=== PATIENT | female | born 1960 | race Caucasian/White ===

== ENCOUNTER 2019-07-16 14:21 | Outpatient (RCR) | payer BC, SELFPAY ==
--- NOTE | 2019-07-16 15:15 | PTOPEVAL ---
Thank you for referring this patient to [facility]. Please review, sign, date and return this plan of care KP. I agree with and certify that the following plan of care is medically necessary. Referring Physician Date Admitting Provider: Attending Provider: PHYSICIAN NOT ON STAFF Referring Provider: *PT Outpatient Evaluation Start: 07/16/19 14:26 Freq: Status: Active Protocol: Document 07/16/19 14:26 [facility] (Rec: 07/16/19 15:14 [facility] [id number]) Therapy Assessment Status Assessment Status Assessment Status Evaluation Outpatient Past Medical History Cardiovascular History Hx Hypertension Yes Musculoskeletal History Hx Fractures Yes: heel Reproductive History Hx Hysterectomy Yes Evaluation Information Problem Diagnosis cervical radiculopathy Onset 07/12/19 Additional Evaluation Detail NDI = 34% currently on steroid dose pack which helps to relieve a lot of her pain Subjective Information patient reports she has pain Query Text:As Reported By Patient/ in the neck and down the R arm Family into the elbow. she reports she has been having pain for about 1 year. she reports she had pull in the upper R arm that limited her mobility and began to give her symptoms into the neck and r elbow. she reports she has not had an MRI as of this date, she reports she has had x-rays of the spine. Diagnostic Tests X-Rays For This Problem Yes MRI For This Problem No Prior Level of Function Comments Additional Prior Level of Function patient has completed some Comments chiroprcatic work for this issue. she reports she has difficulty with working daily (works in a [employer]). 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 she reports again her symptoms are reduced due to being on steroids. Pain Assessment Timing of Pain Assessment Timing of Pain Assessment Assessment Pain Scale Pain Scale Used Numeric (1 - 10) Self Report Pain Assessment Right Neck Reported Pain Level 3 Pain Description Pulling,Sharp,Tightness Pain
--- NOTE | 2019-08-19 16:08 | PCPTNOTE ---
patient cancelled appt. lj
== END 2019-09-02 08:42 | disposition home or self-care (01) ==
LOC: CHSPT 14:21
DX: M54.12 Radiculopathy, cervical region (principal)
CPT/HCPCS: 97012; 97014; 97110; 97140; 97161; G0283

== ENCOUNTER 2022-01-31 11:18 | Outpatient (CLI) | payer BC, SELFPAY ==
[2022-01-31 11:57] LABS: SARS-CoV-2 Ag Negative (Negative)
== END 2022-01-31 11:19 | disposition home or self-care (01) ==
LOC: CHSLAB 11:25
PROVIDERS: PCP Family Medicine
DX: Z01.818 Encounter for other preprocedural examination (principal); Z20.822 Contact with and (suspected) exposure to COVID-19
CPT/HCPCS: 87426; C9803

== ENCOUNTER 2024-07-05 12:58 | Outpatient (RCR) | payer BC, SELFPAY ==
--- NOTE | 2024-07-05 13:44 | OPREHPOC ---
Outpatient Therapy Plan of Care This is a Multidisciplinary Plan of Care that may contain components documented by all disciplines (PT, OT, and ST.) PT Problem 1 PT Problem #1 Knowledge Deficit PT Goal 1 Goal / Goal Update 1. independent and compliant with HEP Target Visit 6 PT Problem 2 PT Problem #2 Pain PT Goal 1 Goal / Goal Update 1. decrease pain at worst to 4/10 or less in the L knee Target Visit 12 PT Problem 3 PT Problem #3 Impaired Range of Motion PT Goal 1 Goal / Goal Update 1. 0-120 degrees active L knee mobility Target Visit 12 PT Problem 4 PT Problem #4 Impaired Strength PT Goal 1 Goal / Goal Update 1. 4/5 L hip flex strength without extension lag during SLR 2. 5/5 L knee strength Target Visit 12 PT Problem 5 PT Problem #5 Impaired Functional Mobil PT Goal 1 Goal / Goal Update 1. patient to transition to cane for ambulation Target Visit 6 PT Goal 2 Goal / Goal Update 1. patient to DC need of any AD for ambulation 2. normal gait mechanics with equal stance time and step/stride length 3. reciprocal mechanics up and down steps 4. LEFS to display 30% or less functional deficits Target Visit 12
--- NOTE | 2024-07-05 13:44 | PTOPEVAL1 ---
Assessment and note entered by JT File, PT Evaluation Information Assessment Status Evaluation Diagnosis s/p L TKA ICD-10 Condition Codes (PT) Pain in left knee M25.562,Z47.89,Z47.1 Onset 07/01/24 Subjective Information patient reports she has the L knee replaced on 09/23. she reports prior to surgery her knee was really bad. she reports she was completely bone on bone. she reports prior to surgery, she was walking without an AD, but was walking slow and was painful. she reports since surgery it has been absolutely miserable. she reports she is unable to lift the L LE up on her own to get in bed. she reports she has been doing some light exercises post op. Reported Pain Level Pain Score 10: Self Report Assessment PT Clinical Summary mrs. nieves is a 64 yo woman who presents to skilled PT services for rehab following L TKA. she presents today with decreased L knee rom, decreased L LE strength, pain, swelling, and abnormal gait mechanics. she would benefit from continued skilled PT to address her objective/ functional deficits to allow patient to return to prior level walking and functional activity performance/quality of life. Plan of Care Interventions Electrical Stimulation,Gait Training,Hot Pack/Cold Pack,Intermittent Compression,Manual Therapy, Neuro Re-education,Patient/Caregiver Educati, Therapeutic Activities,Therapeutic Exercise PT Services Indicated Yes Treatment Frequency and 3x weekly for 12 visits Duration These treatments will address the objective and functional deficits as defined above. The patient will be advanced safely and appropriately in order for the patient to progress towards his/her prior level of function. Additional exercises will be introduced and as well as a comprehensive home exercise program upon discharge, if needed, ?to ensure carryover of functional gains achieved in the clinic. This treatment plan has been reviewed and agreement upon by the patient.
--- NOTE | 2024-07-17 17:06 | PCPTNOTE ---
I reviewed the License Pending Therapist's documentation and agree with the findings.
--- NOTE | 2024-07-19 14:13 | PCPTNOTE ---
I reviewed the License Pending Therapist's documentation and agree with the findings.
--- NOTE | 2024-07-26 16:53 | PCPTNOTE ---
I reviewed the License Pending Therapist's documentation and agree with the findings.
--- NOTE | 2024-07-29 17:37 | PCPTNOTE ---
Documentation has been reviewed by the supervising PT. All documentation is accurate and appropriate.
--- NOTE | 2024-07-30 13:59 | OPREHPOC ---
Outpatient Therapy Plan of Care This is a Multidisciplinary Plan of Care that may contain components documented by all disciplines (PT, OT, and ST.) PT Problem 1 PT Problem #1 Knowledge Deficit PT Goal 1 Goal / Goal Update 1. independent and compliant with HEP Target Visit 6 Progress Met PT Problem 2 PT Problem #2 Pain PT Goal 1 Goal / Goal Update 1. decrease pain at worst to 4/10 or less in the L knee Target Visit 12 Progress Partially Met PT Problem 3 PT Problem #3 Impaired Range of Motion PT Goal 1 Goal / Goal Update 1. 0-120 degrees active L knee mobility Target Visit 12 Progress Met PT Problem 4 PT Problem #4 Impaired Strength PT Goal 1 Goal / Goal Update 1. 4/5 L hip flex strength without extension lag during SLR 2. 5/5 L knee strength Target Visit 12 PT Problem 5 PT Problem #5 Impaired Functional Mobility PT Goal 1 Goal / Goal Update 1. patient to transition to cane for ambulation Target Visit 6 Progress Met PT Goal 2 Goal / Goal Update 1. patient to DC need of any AD for ambulation. partially met 2. normal gait mechanics with equal stance time and step/stride length. 3. reciprocal mechanics up and down steps 4. LEFS to display 30% or less functional deficits Target Visit 12
--- NOTE | 2024-07-30 13:59 | PTOPPROGNS ---
Assessment and note entered by JT File, PT Evaluation Information Assessment Status Progress Diagnosis s/p L TKA ICD-10 Condition Codes (PT) Pain in left knee M25.562,Encounter for other orthopedic aftercare Z47.89,Aftercare following joint replacement surgery Z47.1 Onset 07/01/24 Subjective Information patient reports she is doing well. she reports her pain in the last week has reached a 4 at night. she reports she is using the cane to ambulate off and on. Assessment PT Clinical Summary mrs. nieves presents to skilled PT services for her 10th skilled PT visit. she displays improved rom, strength, and gait mechanics since her initial evaluation. she is progressing well towards achievement of all goals for skilled PT. she would benefit from continued skilled PT to achieve her remaining unmet goals and advance her HEP. Plan of Care Interventions Electrical Stimulation,Gait Training,Hot Pack/Cold Pack,Intermittent Compression Pump,Manual Therapy ,Neuro Re-education,Patient/Caregiver Education, Therapeutic Activities,Therapeutic Exercise PT Services Indicated Yes Treatment Frequency and continue per initial POC Duration These treatments will address the objective and functional deficits as defined above. The patient will be advanced safely and appropriately in order for the patient to progress towards his/her prior level of function. Additional exercises will be introduced and as well as a comprehensive home exercise program upon discharge, if needed, ?to ensure carryover of functional gains achieved in the clinic. This treatment plan has been reviewed and agreement upon by the patient.
--- NOTE | 2024-08-07 13:46 | OPREHPOC ---
Outpatient Therapy Plan of Care This is a Multidisciplinary Plan of Care that may contain components documented by all disciplines (PT, OT, and ST.) PT Problem 1 PT Problem #1 Knowledge Deficit PT Goal 1 Goal / Goal Update 1. independent and compliant with HEP Target Visit 6 Progress Met PT Problem 2 PT Problem #2 Pain PT Goal 1 Goal / Goal Update 1. decrease pain at worst to 4/10 or less in the L knee Target Visit 12 Progress Met PT Problem 3 PT Problem #3 Impaired Range of Motion PT Goal 1 Goal / Goal Update 1. 0-120 degrees active L knee mobility Target Visit 12 Progress Met PT Problem 4 PT Problem #4 Impaired Strength PT Goal 1 Goal / Goal Update 1. 4/5 L hip flex strength without extension lag during SLR. met 2. 5/5 L knee strength. met Target Visit 12 Progress Met PT Problem 5 PT Problem #5 Impaired Functional Mobility PT Goal 1 Goal / Goal Update 1. patient to transition to cane for ambulation Target Visit 6 Progress Met PT Goal 2 Goal / Goal Update 1. patient to DC need of any AD for ambulation. met 2. normal gait mechanics with equal stance time and step/stride length. met 3. reciprocal mechanics up and down steps. met 4. LEFS to display 30% or less functional deficits Target Visit 12
--- NOTE | 2024-08-07 13:48 | PTOPDC ---
Assessment and note entered by JT File, PT Evaluation Information Assessment Status Discharge Diagnosis s/p L TKA ICD-10 Condition Codes (PT) Pain in left knee M25.562,Encounter for other orthopedic aftercare Z47.89,Aftercare following joint replacement surgery Z47.1 Onset 07/01/24 Subjective Information patient reports the knee is not bad today. she reports some of the numbness on the side of the knee is beginning to go away. she reports she is compliant with her HEP at home. she reports she is no longer using a cane or AD. she returns to see the surgeon on 08/12/24. Reported Pain Level Pain Score 0: Self Report Assessment PT Clinical Summary mrs. nieves presents to skilled PT for her 12th skilled PT visits s/p L TKA. she has met all goals for skilled PT as of this date. she is ready to DC to independent HEP. Plan of Care PT Services Indicated Yes
== END 2024-08-07 14:30 | disposition home or self-care (01) ==
LOC: CHSPT 12:58
DX: G89.29 Other chronic pain (principal); M17.12 Unilateral primary osteoarthritis, left knee
CPT/HCPCS: 97016; 97110; 97161

== ENCOUNTER 2025-04-30 13:00 | Outpatient (RCR) | payer MEDICARE, SELFPAY ==
--- NOTE | 2025-04-07 16:06 | OPREHPOC ---
Outpatient Therapy Plan of Care This is a Multidisciplinary Plan of Care that may contain components documented by all disciplines (PT, OT, and ST.) PT Problem 1 PT Problem #1 Knowledge Deficit PT Goal 1 Goal / Goal Update Independent and compliant with HEP. Target Visit 2 PT Problem 2 PT Problem #2 Impaired Strength PT Goal 1 Goal / Goal Update Pt to improve bilat hip flexion, ER and IR strength to 5/5. Pt to improve L knee extension strength to 5/5. Target Visit 12 PT Problem 3 PT Problem #3 Impaired Functional Mobility PT Goal 1 Goal / Goal Update Pt to demonstrate improved out toeing of L foot during ambulation. Pt to be able to ambulate around the block with no more than 5/10 hip pain. Pt to report 20% reduction in perceived disability on LEFS. Target Visit 12
--- NOTE | 2025-04-07 16:06 | PTOPEVAL1 ---
Assessment and note entered by Amaya Aggarwal, PT Evaluation Information Assessment Status Evaluation Other ICD-10 Condition Codes ( Z96.652 PT) Onset 03/24/2025 Subjective Information Pt reports she had her L knee replaced in June 2024 and came to PT for it. She reports her knee has been popping a lot abimael. when she bends her knee and gets out of a chair. She also reports that her knee has been swelling a lot and that she 's barely able to get around the block due to this as well as L hip pain. She went to the orthopedic office in [place] and got x-rays and her surgeon told her that if PT doesn't help and she's not stronger at her follow up in a month, she will have to go back under to get a revision for new spacers. Reported Pain Level Pain Score 0,6: Self Report Assessment PT Clinical Summary Mrs. Epps is a 65 yo female who presents to skilled PT evaluation for frequent popping of her L kneecap along with frequent swelling of the LLE, tenderness behind the back of the L knee, and L hip pain. she demonstrates bilateral hip weakness in flexion, ER and IR as well as weakness in L quadriceps mm group. She demonstrates functional deficits including excessive L foot out toeing when ambulating and pain with squatting. She demonstrates excessive movement with patellar glides as well as clicking of her knee when bending it or when rotating her hip in long sitting. She will benefit from skilled PT intervention to address muscular imbalances at the hips to improve stability at the knees when ambulating to allow pt to ambulate further distances with less pain and reduce clicking. Plan of Care Interventions Electrical Stimulation,Gait Training,Hot Pack/Cold Pack,Manual Therapy,Neuro Re-education,Patient/ Caregiver Education,Therapeutic Activities, Therapeutic Exercise,Self-Care/Home Management PT Services Indicated Yes Treatment Frequency and 2x/week for 12 visits Duration These treatments will address the objective and functional deficits as defined above. The patient will be advanced safely and appropriately in order for the patient to progress towards his/her prior level of function. Additional exercises will be introduced and as well as a comprehensive home exercise program upon discharge, if needed, ?to ensure carryover of functional gains achieved in the clinic. This treatment plan has been reviewed and agreement upon by the patient.
--- NOTE | 2025-04-21 13:06 | PCPTNOTE ---
Cancelled session. Making another trip to the doctor to see what is going on.
--- NOTE | 2025-05-14 13:57 | OPREHPOC ---
Outpatient Therapy Plan of Care This is a Multidisciplinary Plan of Care that may contain components documented by all disciplines (PT, OT, and ST.) PT Problem 1 PT Problem #1 Knowledge Deficit PT Goal 1 Goal / Goal Update Independent and compliant with HEP. Target Visit 2 Progress Met PT Problem 2 PT Problem #2 Impaired Strength PT Goal 1 Goal / Goal Update Pt to improve bilat hip flexion, ER and IR strength to 5/5. not met Pt to improve L knee extension strength to 5/5. met Target Visit 12 Progress Partially Met PT Problem 3 PT Problem #3 Impaired Functional Mobility PT Goal 1 Goal / Goal Update Pt to demonstrate improved out toeing of L foot during ambulation. met Pt to be able to ambulate around the block with no more than 5/10 hip pain. not met Pt to report 20% reduction in perceived disability on LEFS. not met Target Visit 12 Progress Partially Met
--- NOTE | 2025-05-14 13:57 | PTOPPROGNS ---
Assessment and note entered by JT File, PT Evaluation Information Assessment Status Progress ICD-10 Condition Codes (PT) Pain in left knee M25.562 Other ICD-10 Condition Codes ( Z96.652 PT) Onset 03/24/2025 Subjective Information patient reports she continues to have pain in the L knee. she reports it also swells and builds fluid up. she reports this causes stiffness and tightness in the L knee and leg. she reports the surgeon likely will have to redo the replacement. she reports her pain and swelling issues have not improved yet, but she may be a bit stronger. she reports it will lock after sitting on the couch, and then when it finally does move it will snap and hurt a lot. Assessment PT Clinical Summary mrs. nieves presents to skilled PT today with improved strength in the L knee and L hip. however , she still lacks goals achievement of strength in the L hip. she is complicated by difficulty walking, and issues with recurrent swelling and tightness in the L knee. continued skilled PT is indicated to address her remaining objective/ functional deficits to achieve goals and return to her prior level functional activity performance/ quality of life. Plan of Care Interventions Electrical Stimulation,Gait Training,Hot Pack/Cold Pack,Manual Therapy,Neuro Re-education,Patient/ Caregiver Education,Therapeutic Activities, Therapeutic Exercise,Self-Care/Home Management PT Services Indicated Yes Treatment Frequency and continue per initial POC Duration These treatments will address the objective and functional deficits as defined above. The patient will be advanced safely and appropriately in order for the patient to progress towards his/her prior level of function. Additional exercises will be introduced and as well as a comprehensive home exercise program upon discharge, if needed, ?to ensure carryover of functional gains achieved in the clinic. This treatment plan has been reviewed and agreement upon by the patient.
--- NOTE | 2025-05-22 14:02 | OPREHPOC ---
Outpatient Therapy Plan of Care This is a Multidisciplinary Plan of Care that may contain components documented by all disciplines (PT, OT, and ST.) PT Problem 1 PT Problem #1 Knowledge Deficit PT Goal 1 Goal / Goal Update Independent and compliant with HEP. Target Visit 2 Progress Met PT Problem 2 PT Problem #2 Impaired Strength PT Goal 1 Goal / Goal Update Pt to improve bilat hip flexion, ER and IR strength to 5/5. not met Pt to improve L knee extension strength to 5/5. met Target Visit 12 Progress Partially Met PT Problem 3 PT Problem #3 Impaired Functional Mobility PT Goal 1 Goal / Goal Update Pt to demonstrate improved out toeing of L foot during ambulation. met Pt to be able to ambulate around the block with no more than 5/10 hip pain. met Pt to report 20% reduction in perceived disability on LEFS. not met Target Visit 12 Progress Partially Met
--- NOTE | 2025-05-22 14:02 | PTOPDC ---
Assessment and note entered by JT File, PT Evaluation Information Assessment Status Discharge ICD-10 Condition Codes (PT) Pain in left knee M25.562 Other ICD-10 Condition Codes ( Z96.652 PT) Onset 03/24/2025 Subjective Information patient reports she still gets tightness and fluid build up in the L knee. she reports her pain does increase with standing activities and walking, but to a less degree than prior to starting PT. she reports she believes she is going to have to have the TKA redone of the L knee. she reports she will not have this done until after the turn of the year. Reported Pain Level Pain Score 1,1: Self Report Assessment PT Clinical Summary mrs. nieves presents to skilled PT for her 12th skilled therapy visit. she displays continued tightness, functional limitations, and pain in the L knee and hip. however, she is able to do more before the pain reaches a level that requires rest . she is compliant with her HEP, and likely going to have the knee replacement redone early next year. at this time, she will DC to an independent HEP. Plan of Care PT Services Indicated Yes
== END 2025-05-22 14:42 | disposition home or self-care (01) ==
LOC: CHSPT 13:00
DX: Z96.652 Presence of left artificial knee joint (principal)
CPT/HCPCS: 97016; 97110; 97112; 97161; 97530